=== PATIENT | female | born 1980 | race Caucasian/White ===

== ENCOUNTER 2017-11-12 06:35 | Day surgery (SDC) | END 2017-11-12 12:11 | disposition home or self-care (01) ==

== ENCOUNTER 2018-10-06 12:30 | Day surgery (SDC) | payer OTHER ==
[~2018-10-06] VITALS: Ht 162.6 cm; Wt 52.2 kg
[~2018-10-06 12:30] MED LIST: NEXIUM; RANITIDINE
[2018-10-06 14:04] VITALS: BP 111/59; PULSE 69; RESP 20; Ht 162.6 cm; Wt 52.2 kg
--- NOTE | 2018-10-06 14:12 | PREAC ---
Date/Time of Note Date/Time of Note DATE: 10/06/18 TIME: 14:12 Anesthesia Eval and Record Evaluation Time Pre-Procedure Interview DATE: 10/06/18 TIME: 14:12 Age 38 Sex female NPO: 8 hrs Preoperative diagnosis GERD, LARYNGITIS Planned procedure EGD WITH BIOPSIES Past Medical History Past Medical History: None Surgery & Anesthesia Issues No known issue Meds Anticoagulation: No Beta Leila within 24 hr: No Reason Beta Leila not given: Pt. not on B-Leila Reported Medications [Ranitidine] No Conflict Check 11/12/17 [Nexium] No Conflict Check 11/12/17 Meds reviewed: Yes Allergies Coded Allergies: No Known Drug Allergy (Verified Allergy, Mild, 01/29/08) Allergies Reviewed: Yes Labs/Studies Labs Reviewed: Reviewed by anesthesiologist test: Negative Pre-procedure Exam Last vitals Vital Signs Date Temp Pulse Resp B/P (MAP) Pulse Ox O2 O2 Flow FiO2 Time Delivery Rate 10/06/18 97.8 69 20 111/59 98 Room Air 14:04 (76) Airway: Adequate mouth opening, Adequate thyromental dist Mallampati: Mallampati II Teeth: Normal Lung: Normal Heart: Normal ASA Physical Status ASA physical status: 1 Emergency: None Planned Anesthetic General/MAC: MAC Planned Pain Management Parenteral pain med Pre-operative Attestations Prior to commencing anesthesia and surgery, the patient was re-evaluated, there was verification of: *The patient's identity *The results of appropriate recent lab work and preoperative vital signs *The above evaluation not changing prior to induction *Anesthetic plan, risk benefits, alternative and complications discussed with patient/family; questions answered; patient/family understands, accepts and wishes to proceed. Mario Beck M.D. October 06, 2018 14:12
[2018-10-06] MEDS ORDERED: PROPOFOL 40 ML ONE (14:14)
[2018-10-06] MEDS ORDERED: LIDOCAINE 100 MG SYRINGE ONE (14:14)
[2018-10-06] MEDS ORDERED: FENTAnyl 50 MCG/ML VIAL ONE (14:14)
--- NOTE | 2018-10-06 14:23 | PAC ---
Date/Time of Note Date/Time of Note DATE: 10/06/18 TIME: 14:23 Post-Anesthesia Notes Post-Anesthesia Note Last documented vital signs Vital Signs Date Temp Pulse Resp B/P (MAP) Pulse Ox O2 O2 Flow FiO2 Time Delivery Rate 10/06/18 97.8 69 20 111/59 98 Room Air 14:04 (76) Activity: WNL Respiratory function: WNL Cardiovascular function: WNL Mental status: Baseline Pain reasonably controlled: Yes Hydration appropriate: Yes Nausea/Vomiting absent: Yes Mario Beck M.D. October 06, 2018 14:23
[2018-10-06 14:30] VITALS: BP 99/55; PULSE 76; RESP 18
[2018-10-06] MEDS ORDERED: TRIMETHOBENZAMIDE 100 MG/ML VIAL IM PRN (14:30)
[2018-10-06] MEDS ORDERED: FENTAnyl 50 MCG/ML VIAL IV PRN ×3 (14:30)
[2018-10-06] MEDS ORDERED: OXYCODONE/ACETAMINOPHEN (5/325) TAB PO PRN ×2 (14:30)
[2018-10-06] MEDS ORDERED: DIPHENHYDRAMINE 50 MG INJ IV PRN (14:30)
[2018-10-06] MEDS ORDERED: MEPERIDINE 25 MG INJ IV PRN (14:30)
[2018-10-06] MEDS ORDERED: ONDANSETRON 4 MG INJ IV PRN (14:30)
[2018-10-06] MEDS ORDERED: IPRATROPIUM (NEB) 0.5 MG/2.5 ML AMP HHN PRN (14:30)
[2018-10-06] MEDS ORDERED: hydrALAzine 20 MG INJ IV PRN (14:30)
[2018-10-06] MEDS ORDERED: MIDAZOLAM 1 MG/ML 2 ML INJ IV PRN (14:30)
[2018-10-06] MEDS ORDERED: HYDROmorphONE 1 MG/5 ML IV SYRINGE IV PRN ×3 (14:30)
[2018-10-06] MEDS ORDERED: ALBUTEROL 0.083% (NEB) 2.5 MG/3 ML AMP HHN PRN (14:30)
[2018-10-06] MEDS ORDERED: EPHEDrine SULFATE 50 MG/5 ML SYG IV PRN (14:30)
[2018-10-06] MEDS ORDERED: LABETALOL HCL 20MG INJ IV PRN (14:30)
[2018-10-06 14:52] VITALS: BP 101/63; PULSE 68; RESP 19
== END 2018-10-06 15:55 | disposition home or self-care (01) ==
LOC: GIL 12:30
PROVIDERS: ATTEND Internal Medicine Gastroenterology
DX: K29.30 Chronic superficial gastritis without bleeding (principal)
CPT/HCPCS: 43239; 88305; 88312; 88313; J2001; J3010